=== PATIENT | female | born 1995 | race Caucasian/White ===

== ENCOUNTER 2024-07-25 09:31 | Emergency (ER) | payer OTHER, SELFPAY ==
[2024-07-25 10:12] VITALS: BP 111/69; PULSE 96; RESP 19; TEMP 37.2; O2SAT 97; BMI 36.4
--- NOTE | 2024-07-25 10:22 | ED.URI ---
HPI - URI/Sore Throat General Chief Complaint: Upper Respiratory Symptoms Stated Complaint: sore throat, fever, body aches/headache Time Seen by Provider: 07/25/24 09:57 Source: patient Mode of arrival: Family Vehicle History of Present Illness HPI Narrative: Patient presents with a fever for the past few days. The patient has a no history of diabetes, hypertension, and heart disease. The patient reports taking Tylenol frequently for fever management, with a total intake of approximately 1150 mg per day. The patient denies any significant nausea or vomiting but mentions a slight decrease in appetite. There is no cough productive of phlegm or mucus. The patient has not been taking any other medications for symptom relief. She currently has a son who was sick and tested positive for RSV, she states that she has had body aches, myalgias, sore throat since he began having symptoms Medications: Tylenol (approximately 1150 mg/day). Past Medical History: No history of Diabetes, hypertension, heart disease. Related Data Allergies Allergy/AdvReac Type Severity Reaction Status Date / Time Sulfa (Sulfonamide Allergy Rash Verified 07/25/24 10:17 Antibiotics) Review of Systems Review of Systems Narrative: Constitutional: Reports fever for the past few days. Eyes: No visual changes. ENT: No sore throat, no ear pain. Respiratory: No cough, no shortness of breath. Cardiovascular: No chest pain, no palpitations. Gastrointestinal: Slight nausea, decreased appetite, no vomiting, no diarrhea. Genitourinary: No dysuria, no hematuria. Musculoskeletal: No muscle pain, no joint pain. Neurological: No headaches, no dizziness. Skin: No rashes, no lesions. Psychiatric: No anxiety, no depression. Patient History Social History Smoking Status: Never smoker Smoking Status: Never smoker Exam Narrative Exam Narrative: General: Well appearing, well nourished, in no distress. Skin: Good turgor, no rash, unusual bruising or prominent lesions. Head: Normocephalic, atraumatic. HEENT: Conjunctiva clear, EOM intact, PERRL, mucous membranes moist. Posterior pharynx clear, no erythema, no purulent drainage, uvula midline. Neck: Supple, normal ROM. Heart: Regular rate and rhythm, no murmur or gallop or rubs. Lungs: Clear to auscultation. No rales, rhonchi, or wheezes. Strong cough, no signs of pneumonia. Abdomen: Soft and nontender. Bowel sounds normal. No mass or hernia. Back: Spine normal without deformity or tenderness, no CVA tenderness. Extremities: No deformities, edema. Peripheral pulses intact. Neurologic: CN 2-12 normal. Normal sensation and motor exam. Alert and oriented. Psychiatric: Oriented X3. Normal mood and affect. Initial Vital Signs Initial Vital Signs: Vital Signs Temperature 98.9 F 07/25/24 10:12 Pulse Rate 96 H 07/25/24 10:12 Respiratory Rate 19 07/25/24 10:12 Blood Pressure 111/69 07/25/24 10:12 Pulse Oximetry 97 07/25/24 10:12 Oxygen Delivery Method Room Air 07/25/24 10:12 Course Orders Ordered: Discontinued Medications Acetaminophen (Acetaminophen 325 Mg Tablet) 650 mg PO NOW ONE Stop: 07/25/24 10:22 Last Admin: 07/25/24 10:38 Dose: 650 mg Documented By: JOE Ibuprofen (Ibuprofen 400 Mg Tablet) 400 mg PO NOW ONE Stop: 07/25/24 10:22 Last Admin: 07/25/24 10:39 Dose: 400 mg Documented By: MPO Vital Signs Vital signs: Vital Signs - 8 hr 07/25/24 10:12 Temperature 98.9 F Pulse Rate 96 H Respiratory Rate 19 Blood Pressure 111/69 Pulse Oximetry 97 Oxygen Delivery Method Room Air MDM - URI/Sore Throat MDM Narrative Medical decision making narrative: INITIAL EVALUATION AND PLAN: - Suspected RSV or another upper respiratory infection. Discussed testing however given patient is in contact with RSV positive individual do not believe retesting is absolutely necessary at this time. - Continue with Tylenol and ibuprofen for symptom management. - Monitor symptoms and seek further evaluation if fever persists beyond 7 days or if symptoms worsen. - No immediate need for chest X-ray or additional testing unless symptoms change. - Differential diagnosis includes but is not limited to: RSV, influenza, other upper respiratory infections, strep throat, viral exanthem -on my examination patient has no signs of bacterial infection, clear lung sounds, no tachypnea, hypoxia or other signs that I believe patient needs a chest x-ray however it was considered. Patient is overall well-appearing and low risk, likely RSV given exposure to sun with similar symptoms. Educated on Tylenol,/ibuprofen use in order to help with symptoms. We discussed return precautions and patient discharged from the emergency department. Discharge Plan Departure Patient Disposition: Home Clinical Impression: Upper respiratory infection Activity Restrictions/Additional Instructions: You were seen in the emergency department today and likely have RSV along with your son, please continue with Tylenol and ibuprofen in order to help with your symptoms. If you have worsening chest pain, shortness of breath, fevers that are not improving with Tylenol, ibuprofen administration please return to the emergency department for re-evaluation. Please follow-up with your primary care doctor for ongoing management of medical needs and re-evaluation after this illness. Stand Alone Forms: Patient Portal/API/Survey
[2024-07-25] MEDS: ACETAMINOPHEN 325 MG TABLET 650 MG PO (10:38)
[2024-07-25] MEDS: IBUPROFEN 400 MG TABLET PO (10:39)
[2024-07-25 11:47] VITALS: BP 115/70; PULSE 95; RESP 20; TEMP 37; O2SAT 98
== END 2024-07-25 11:49 | disposition home or self-care (01) ==
PROVIDERS: Emergency Provider Emergency Medicine
DX: J06.9 Acute upper respiratory infection, unspecified (principal); Z20.828 Contact with and (suspected) exposure to other viral communicable diseases
CPT/HCPCS: 99283

== ENCOUNTER → 2025-03-10 11:31 | Outpatient (CLI) | payer OTHER, SELFPAY | PROVIDERS: Visit Provider Chiropractor | DX: R39.9 Unspecified symptoms and signs involving the genitourinary system (principal) | CPT/HCPCS: 87077; 87086 ==